=== PATIENT | female | born 1945 | race Caucasian/White ===

== ENCOUNTER → 2017-04-11 | Outpatient (CLI) | payer OTHER, BC ==
[~2017-04-11] MED LIST: ACIDOPHILUS1 EAC2 PO; NAPROSYN500 MG PO; NYAMYC15 GM TOP; OXYCONTIN10 M1 PO; POTASSIUM20 PO; VITAMIN D250000 UNIT PO; ZOLOFT100 MG PO; [UNRECOGNIZED DRUG - OTHER] PO
--- NOTE | ~2017-04-11 | EKG ---
[address] [address] ELECTROCARDIOGRAM REPORT Name: SOCRATES CURRAN [facility] [id number] Admission: 04/11/17 Attend Phys: Randy Ramirez MD Discharge: Date of : 43 Report #: [id number] THIS REPORT FOR: //name// [facility] Test Date: 2017-04-11 Test Time: 06:32:53 Pat Name: SOCRATES CURRAN Department: Room: Gender: F [employer]: OLEG : 1945 Requested By: Randy Ramirez Order Number: [id number] MD: Chilo Kaiser Measurements Intervals Clemons Rate: 89 P: 44 RI: 167 QRS: -15 QRSD: 73 T: 0 QT: 358 QTc: 436 Interpretive Statements Sinus rhythm Inferior infarct, old No previous ECG available for comparison Electronically Signed On 04-11-2017 8:48:54 [employer] by Chilo Kaiser [email or web address] <ELECTRONICALLY SIGNED> By: Chilo Kaiser MD, [facility] 04/11/17 0848 0632 1 Chilo Kaiser MD, FACC /EPI
== END | disposition home or self-care (01) ==
LOC: LITH 05:51
DX: N20.0 Calculus of kidney (principal); Z53.9 Procedure and treatment not carried out, unspecified reason; Z79.891 Long term (current) use of opiate analgesic; Z91.040 Latex allergy status
CPT/HCPCS: 50010